=== PATIENT | female | born 1990 | race Asian ===

== ENCOUNTER 2017-02-11 14:40 | Emergency (ER) | payer MEDICAID ==
[~2017-02-11] VITALS: Ht 157.5 cm; Wt 65.6 kg
[2017-02-11] MEDS ORDERED: SODIUM CHLORIDE 0.9% 1,000 ML IV ONE (15:19)
[2017-02-11] MEDS ORDERED: SODIUM CHLORIDE FLUSH 10ML SYR IVF ONE (15:30)
[2017-02-11] MEDS ORDERED: SODIUM CHLORIDE 0.9% 1,000ML IVBOLUS ONE (15:30)
[2017-02-11 17:07] VITALS: BP 107/74
== END 2017-02-11 18:09 | disposition home or self-care (01) ==
LOC: ED 16:46
DX: N92.4 Excessive bleeding in the premenopausal period (principal); D50.0 Iron deficiency anemia secondary to blood loss (chronic)
CPT/HCPCS: 36415; 76830; 84702; 85025; 96360; 99285; J7030